=== PATIENT | male | born 1980 | race Caucasian/White ===

== ENCOUNTER 2019-12-24 16:42 | Emergency (ER) | payer MEDICAID ==
[~2019-12-24] VITALS: Ht 180.3 cm; Wt 75.7 kg
[2019-12-24 17:13] VITALS: BP 140/89
== END 2019-12-24 20:12 | disposition left against medical advice (07) ==
LOC: ER 16:42
DX: M79.642 Pain in left hand (principal); M79.641 Pain in right hand; Z53.21 Procedure and treatment not carried out due to patient leaving prior to being seen by health care provider